=== PATIENT | male | born 1955 | race Asian ===

== ENCOUNTER → 2017-02-23 | Outpatient (CLI) | payer OTHER | END | disposition home or self-care (01) | LOC: PETCFH 11:21 | PROVIDERS: ATTEND Specialist | DX: C34.11 Malignant neoplasm of upper lobe, right bronchus or lung (principal); R59.0 Localized enlarged lymph nodes; N28.89 Other specified disorders of kidney and ureter; J90 Pleural effusion, not elsewhere classified; Z98.890 Other specified postprocedural states | CPT/HCPCS: 78815; A9552 ==

== ENCOUNTER 2021-03-28 14:55 | Emergency (ER) | payer BC, OTHER ==
[~2021-03-28] VITALS: Ht 170.2 cm; Wt 70.3 kg
--- NOTE | 2021-03-28 15:25 | NUR ---
THIS IS A 65 YO M SENT FROM [facility]/ C/O PALPITATIONS, WORSE W/ EXERTION. HX OF AFIB OR AFLUTTER, PT IS UNSURE BUT TAKES XARELTO DAILY. PIV STARTED, LABS DRAWN. [facility] RESIDENT AT BEDSIDE W/ DOOR FRAMER FOR EVAL. PT AFLUTTER IN 140'S, HYPERTENSIVE, OTHER VS WDL. RESTING ON GURNEY W/ CALL LIGHT IN REACH AND SIDE RAILS UPX2. RESP EVEN AND UNLABORED, SHREE.
[2021-03-28 15:44] LABS: ANION GAP 6 mmol/L (5-15); CHLORIDE 107 mmol/L (98-107); CREATININE 1.25 mg/dL (0.7-1.3)
[2021-03-28] MEDS ORDERED: PROPOFOL 10 MG/ML, 20ML ONE (15:45)
--- NOTE | 2021-03-28 16:10 | NUR ---
PT SET UP FOR CARDIOVERSION.
--- NOTE | 2021-03-28 16:12 | NUR ---
PT SEEMINGLY SELF CONVERTED INTO SR W/ RATE IN 90'S. PER , HOLD OFF ON CARDIOVERSION AT THIS TIME. SHREE SOUZA. FAMILY AT BEDSIDE.
[2021-03-28 16:30] VITALS: BP 150/93
[2021-03-28] MEDS ORDERED: PROPOFOL 10 MG/ML, 20ML IVPush ONE (16:30)
[2021-03-28] MEDS ORDERED: SODIUM CHLORIDE 0.9% 1,000ML IVBOLUS ONE (16:30)
--- NOTE | 2021-03-28 16:47 | NUR ---
Patient and family given discharge instructions and they have confirmed that they understand the instructions. Patient wheeled to dc desk. manuel bernard.
== END 2021-03-28 16:49 | disposition home or self-care (01) ==
LOC: ED 16:41
DX: I48.92 Unspecified atrial flutter (principal); I48.91 Unspecified atrial fibrillation; E78.5 Hyperlipidemia, unspecified; R00.0 Tachycardia, unspecified
CPT/HCPCS: 36415; 80048; 84443; 93005; 99285

== ENCOUNTER → 2021-05-22 | Outpatient (CLI) | payer BC | END | disposition home or self-care (01) | LOC: CFH 07:14 | PROVIDERS: ATTEND Internal Medicine Cardiovascular Disease | DX: I08.1 Rheumatic disorders of both mitral and tricuspid valves (principal); R00.0 Tachycardia, unspecified | CPT/HCPCS: 93306 ==